=== PATIENT | female | born 1980 | race Caucasian/White ===

== ENCOUNTER 2017-05-03 09:46 | Inpatient (IN) ==
[2017-05-03] MEDS ORDERED: OXYTOCIN/LR 20 UNIT/1,000 ML BAG IV ONE ×3 (09:52→10:34)
[2017-05-03] MEDS ORDERED: BUTORPHANOL 1 MG/ML VIAL ONE (09:53)
[2017-05-03] MEDS ORDERED: MEPERIDINE 50 MG/1 ML VIAL ONE (09:55)
[2017-05-03] MEDS ORDERED: MEPERIDINE 50 MG/1 ML VIAL IV PRN (10:05)
[2017-05-03] MEDS ORDERED: ONDANSETRON 4 MG/2 ML VIAL IV PRN (10:05)
[2017-05-03] MEDS ORDERED: BUTORPHANOL 2 MG/ML VIAL IV PRN (10:05)
[2017-05-03 10:20] LABS: Basophils % 0.3 % (0.0-0.8); Eosinophils % 0.2 % (0.00-10.9); Hemoglobin 10.8 GM/DL (12.0-16.0); Immature Granulocytes % 0.9 %; Immature Granulocytes Absolute 0.11 #; Lymphocytes # 2.9 10*3/uL (1.4-4.0); Lymphocytes % 22.7 % (21.3-54.2); Mean Corpuscular HGB Conc 33.8 GM/DL (32-36); Mean Corpuscular Hemoglobin 28 PG (27-34); Mean Corpuscular Volume 84.2 FL (87-102); Mean Platelet Volume 10.9 FL (9.6-12.0); Monocytes # 0.9 10*3/uL (0.11-0.8); Monocytes % 6.8 % (1.7-12.7); Neutrophils # 8.9 10*3/uL (1.4-7.4); Neutrophils % 69.1 % (38.7-73.9); Platelet Count 225 T/CUMM (130-400); Red Cell Distribution Width 13.9 % (9.3-17.3); White Blood Count 12.9 T/CUMM (4-12)
[2017-05-03] MEDS ORDERED: LACTATED RINGERS 1,000 ML IV SCH (10:30)
--- NOTE | 2017-05-03 10:32 | OB/GYN History & Physical ---
History of Present Illness Chief complaint: contractions and SROM History of present illness: Ms. Rivera is a 37 year old female who is 37 weeks 6 days and woke up this morning with contractions. She ruptures about 1 hour before. she arrived. The patient has had 3 prior deliveries and she has been seeing Dr. Robles for her current . She has had no issues during this and she has seen M. 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 anticipate SAVD Current Visit: Yes Results - Labs CBC & BMP: 05/03/17 10:15
[2017-05-03] MEDS ORDERED: RHO(D) IMMUNE GLOBULIN 300 MCG SYRINGE IM ONE (10:34)
[2017-05-03] MEDS ORDERED: ACETAMINOPHEN 325 MG TABLET PO PRN (10:34)
[2017-05-03] MEDS ORDERED: IBUPROFEN 800 MG TABLET PO PRN (10:34)
[2017-05-03] MEDS ORDERED: BISACODYL 10 MG SUPP RECTAL PRN (10:34)
[2017-05-03] MEDS ORDERED: LANOLIN 50% CREAM 0.3 OZ TUBE TOP PRN (10:34)
[2017-05-03] MEDS ORDERED: HYDROCORTISONE 2.5% RECTAL CREAM 30 GM TUBE TOP PRN (10:34)
[2017-05-03] MEDS ORDERED: WITCH HAZEL PADS 100/JAR TOP PRN (10:34)
[2017-05-03] MEDS ORDERED: oxyCODONE/ACETAMINOPHEN 5-325 MG TABLET PO PRN ×2 (10:34)
[2017-05-03] MEDS ORDERED: DIPH/TET/ACEL PERT BOOSTER VACCINE 0.5 ML VIAL IM ONE (10:34)
[2017-05-03] MEDS ORDERED: MEASLES/MUMPS/RUBELLA VACCINE 0.5 ML VIAL SUBCUT ONE (10:34)
[2017-05-03] MEDS ORDERED: BENZOCAINE 20%/MENTHOL 0.5% SPRAY 56 GM CAN TOP PRN (10:34)
--- NOTE | 2017-05-03 10:37 | Operative Note ---
Date of procedure: 05/03/17 Pre-op diagnosis: IUP at 37 wk 6 days, active labor Post-op diagnosis: same Procedure: Spontaneous vaginal delivery over right medial lateral episiotomy. Infant boy Apgars 8 and 9, weight 8 lbs. 14 oz. Shortly after the patient presented to the hospital she was completely dilated and we did not have time for an epidural at this 0.1% lidocaine was injected at the perineum and a small episiotomy was cut and the patient delivered shortly thereafter without any complications there was mild meconium which was suctioned via the wall suction when the baby came out the cord was clamped and cut and the infant was then handed off to the nurse. The placenta delivered spontaneously and the episiotomy was repaired using 3-0 Vicryl in the usual fashion. Sponge lap and instrument counts were correct 3 in the patient was doing well. Anesthesia: local Surgeon / Physician: Halina Mccullough Estimated blood loss: other (200) Specimens: none sent Condition: stable Disposition: post procedure unit Results - Labs CBC & BMP: 05/03/17 10:15
[2017-05-03 11:02] LABS: Albumin 2.9 G/DL (3.4-5.0); Bilirubin,Total 0.6 MG/DL (0.2-1.0); Calcium 8.9 MG/DL (8.5-10.1); Osmolality,Calculated 273.5 MOS/KG (273-304); Potassium 3.6 MMOL/L (3.5-5.1); Total Protein 6.6 G/DL (6.4-8.3)
[2017-05-03] MEDS: DOCUSATE SODIUM 100 MG CAPSULE PO SCH (20:34)
[2017-05-04 06:15] LABS: Basophils % 0.3 % (0.0-0.8); Eosinophils # 0.1 10*3/uL (0.0-0.87); Eosinophils % 0.5 % (0.00-10.9); Hematocrit 24.6 VOL% (35.7-47.0); Immature Granulocytes % 1.1 %; Immature Granulocytes Absolute 0.14 #; Lymphocytes # 3.4 10*3/uL (1.4-4.0); Lymphocytes % 26.5 % (21.3-54.2); Mean Corpuscular HGB Conc 32.5 GM/DL (32-36); Mean Corpuscular Hemoglobin 28 PG (27-34); Mean Corpuscular Volume 86.3 FL (87-102); Mean Platelet Volume 11.3 FL (9.6-12.0); Monocytes # 0.9 10*3/uL (0.11-0.8); Monocytes % 6.8 % (1.7-12.7); Neutrophils # 8.4 10*3/uL (1.4-7.4); Neutrophils % 64.8 % (38.7-73.9); Platelet Count 194 T/CUMM (130-400); Red Blood Count 2.85 MC/CUMM (3.8-5.5); Red Cell Distribution Width 14.1 % (9.3-17.3); White Blood Count 12.9 T/CUMM (4-12)
--- NOTE | 2017-05-04 07:13 | OB/GYN Progress Note ---
Assessment and Plan (1) Status: Acute Assessment and plan: PPD#1 s/p SAVD. 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 her bleeding is light. She desires circumcision for her baby and R/B/A/C were reviewed with her this morning Exam RIPPER OPERATOR - Constitutional Vitals: Vital Signs Temp Pulse Resp BP Pulse Ox 05/04/17 00:05 97.6 F 65 20 116/71 96 05/03/17 20:34 98.7 F 05/03/17 19:45 99.0 F 60 20 119/74 97 05/03/17 16:00 97.9 F 68 18 116/72 100 05/03/17 09:45 62 18 113/63 General appearance: normal weight, no acute distress - Respiratory Respiratory exam: Absent: accessory muscle use - Cardiovascular Cardiovascular exam: Present: regular rate and rhythm - GI/Abdominal GI/Abdominal exam: Absent: guarding, rebound - Extremities Exam Extremities exam: Absent: calf tenderness - Neurological Exam Neurological exam: Present: alert, oriented X3 - Psychiatric Psychiatric exam: Present: normal affect Results - Labs CBC & BMP: 05/04/17 04:30 05/03/17 10:15
[2017-05-04] MEDS: DOCUSATE SODIUM 100 MG CAPSULE PO SCH ×2 (09:15→22:00)
[2017-05-05 07:20] VITALS: BP 98/56
--- NOTE | 2017-05-05 08:27 | Discharge Summary ---
Hospital Course - Hospital Course Hospital Course: The patient was admitted in active labor and shortly after admission she delivered a viable infant boy without any complications. Her hospital stay was uneventful. She was ready to go home on day #2. Diagnosis - Discharge Diagnosis (1) Status: Acute Specialty Discharge - Follow Up or Referrals Follow up with: Regulo Robles MD [Family Provider] - 1 Month Discharge Plan - Discharge Data Disposition: Disch To Home/Self Care Condition at Discharge: Stable Discharge Diet: advance to your usual diet Hygiene: may shower Weight Bearing at Discharge: full weight bearing Driving: no restrictions Contact your physician if you experience:: fever over 101, Difficulty voiding, Redness or swelling, Nausea/Vomiting, Shortness of breath, Bleeding, pain uncontrolled by pain medications - Discharge Medications No Action No Known Home Medications [No Known Home Medications] - Follow Up or Referral Follow Up: Regulo Robles MD [Family Provider] - - Forms/Instructions Instructions: Perineal Care (DC), Vaginal Delivery (DC), Bleeding (DC) Exam - Constitutional Vitals: Period Temp Pulse Resp BP Sys/[facility] Pulse Ox Last 24 Hr 96.3 F-99.3 F 51-65 18-20 88-121/50-80 97-99 General appearance: normal weight, no acute distress - Respiratory Respiratory exam: Absent: accessory muscle use - Cardiovascular Cardiovascular exam: Present: regular rate and rhythm - GI/Abdominal GI/Abdominal exam: Present: soft. Absent: guarding, tenderness, rebound - Extremities Exam Extremities exam: Absent: calf tenderness - Neurological Exam Neurological exam: Present: alert, oriented X3 - Psychiatric Psychiatric exam: Present: normal affect, normal mood DS: Provider Date of admission: 05/03/17 10:05 Primary care physician: . No PCP Attending physician on admission: Halina Garland- Consults: 05/03/17 10:34 Consult to Furniture Arranger [CONS] Routine Consult Furniture Arranger: Breast Feeding Discharging clinician: Halina Garland- Expected date of discharge: 05/05/17
== END 2017-05-05 10:15 | disposition home or self-care (01) | DRG 775 ==
LOC: N.LDOUT 09:46 → N.LD 09:49 → N.OB 16:00
PROVIDERS: ADMIT Obstetrics & Gynecology; ATTEND Specialist